=== PATIENT | male | born 1935 | race Caucasian/White ===

== ENCOUNTER 2019-10-01 11:31 | Emergency (ER) | payer MEDICARE, BC ==
--- NOTE | 2019-10-01 13:16 | CT ---
EXAM: CT abdomen and pelvis without IV contrast PROVIDED CLINICAL HISTORY: None COMPARISON: None FINDINGS: The visualized lung bases are free of significant opacity. The solid abdominal organs demonstrate an unremarkable, unenhanced CT appearance. There is no bowel dilatation, inflammatory fat stranding, free fluid or free air apparent. There is n o evidence for appendicitis. The pelvis is suboptimally evaluated on the basis of beam hardening artifact from left hip arthroplasty. No regional lymph node enlargement apparent. Vascular calcifications are noted. The osseous structures demonstrate no concerning lytic or blastic lesions. IMPRESSION: No evidence for an acute process.
[2019-10-01 13:19] LABS: Bilirubin Negative (Negative); Blood, Urine Negative (Negative); Clarity Clear (Clear); Glucose, Urine (Dipstick) 100 mg/dL (Negative); Leukocyte Negative Leu/uL (Negative); Nitrite Negative (Negative); Protein, Urine (Dipstick) 10 mg/dL (Neg-Trace); Urobilinogen Normal mg/dL (Less than 2)
[2019-10-01 13:27] LABS: #Basophils 0.1 thou/uL (0.0-0.2); #Eosinphils 0.2 thou/uL (0.0-0.7); #Lymphocytes 2.5 thou/uL (1.20-3.40); #Neutrophils 7.6 thou/uL (1.40-6.50); %Basophils 0.6 % (0.0-1.0); %Eosinophils 1.4 % (0.0-10.0); %Monocytes 8.8 % (0.0-10.0); %Neutrophils 67.2 % (42.0-75.0); Hemoglobin 16.8 g/dL (14.0-18.0); Mean Corpuscular HGB CONC 32.9 g/dL (32.0-36.0); Mean Corpuscular Hemoglobin 30.8 pg (27.0-31.0); Mean Corpuscular Volume 93.6 fL (78.0-98.0); Mean Platelet Volume 8.7 fL (7.4-10.4); Platelet Count 189 thou/uL (130-400); RBC Distribution Width 13.1 % (11.5-14.5); Red Blood Cell (RBC) Count 5.44 mill/uL (4.70-6.10); White Blood Cell (WBC) Count 11.3 thou/uL (4.8-10.8)
[2019-10-01] MEDS ORDERED: Fentanyl 100 MCG/2 ML VIAL ONE (13:49)
[2019-10-01] MEDS ORDERED: Ketorolac Tromethamine 30 MG/ML VIAL ONE (13:49)
[2019-10-01 13:54] LABS: ALT (SGPT) 16 U/L (8-55); AST (SGOT) 20 U/L (5-34); Albumin 4.5 g/dL (3.4-4.8); Alkaline Phosphatase 71 U/L (40-110); Anion Gap 12 mmol/L (10-20); BUN (Urea Nitrogen) 22 mg/dL (8.4-25.7); Bilirubin, Total 0.5 mg/dL (0.2-1.2); CK (CPK) 40 U/L (30-200); Calc. Creatinine Clearance 0 mL/min (70-130); Calcium 9.8 mg/dL (7.8-10.44); Carbon Dioxide 31 mmol/L (23-31); Chloride 100 mmol/L (98-107); Estimated GFR-MDRD 44; Globulin 3.2 g/dL (2.4-3.5); Glucose 87 mg/dL (83-110); Lipase 28 U/L (8-78); Potassium 3.7 mmol/L (3.5-5.1); Protein, Total 7.7 g/dL (5.8-8.1); Sodium 139 mmol/L (136-145)
== END 2019-10-01 15:23 | disposition home or self-care (01) ==
LOC: ERS 11:31
DX: R10.9 Unspecified abdominal pain (principal); I10 Essential (primary) hypertension; I48.91 Unspecified atrial fibrillation; E11.9 Type 2 diabetes mellitus without complications; F17.220 Nicotine dependence, chewing tobacco, uncomplicated; Z79.899 Other long term (current) drug therapy
CPT/HCPCS: 74176; 80053; 81003; 82550; 83690; 84484; 85025; 93005; 96361; 96374; 96375; J1885; J3010

== ENCOUNTER 2022-02-28 11:32 | Emergency (ER) | payer MEDICARE, BC ==
[2022-02-28 13:28] LABS: #Basophils 0.1 thou/uL (0.0-0.2); #Eosinphils 0.2 thou/uL (0.0-0.7); #Lymphocytes 2.3 thou/uL (1.20-3.40); #Monocytes 0.8 thou/uL (0.11-0.59); #Neutrophils 5.4 thou/uL (1.40-6.50); %Basophils 0.8 % (0.0-1.0); %Eosinophils 2.2 % (0.0-10.0); %Lymphocytes 26.6 % (21.0-51.0); %Neutrophils 61.4 % (42.0-75.0); Hemoglobin 14.4 g/dL (14.0-18.0); Mean Corpuscular HGB CONC 32.2 g/dL (32.0-36.0); Mean Corpuscular Hemoglobin 33.9 pg (27.0-31.0); Mean Platelet Volume 7.7 fL (7.4-10.4); Platelet Count 193 thou/uL (130-400); RBC Distribution Width 12.9 % (11.5-14.5); Red Blood Cell (RBC) Count 4.23 mill/uL (4.70-6.10); White Blood Cell (WBC) Count 8.8 thou/uL (4.8-10.8)
[2022-02-28 13:42] LABS: ALT (SGPT) 26 U/L (8-55); AST (SGOT) 27 U/L (5-34); Albumin 3.6 g/dL (3.4-4.8); Alkaline Phosphatase 68 U/L (40-110); Anion Gap 12 mmol/L (10-20); BUN (Urea Nitrogen) 21 mg/dL (8.4-25.7); Bilirubin, Total 0.7 mg/dL (0.2-1.2); Calc. Creatinine Clearance 0 mL/min (70-130); Calcium 9.2 mg/dL (7.8-10.44); Carbon Dioxide 31 mmol/L (23-31); Chloride 99 mmol/L (98-107); Globulin 2.8 g/dL (2.4-3.5); Glucose 146 mg/dL (83-110); Protein, Total 6.4 g/dL (5.8-8.1); Sodium 138 mmol/L (136-145)
[2022-02-28] MEDS ORDERED: Furosemide 20 MG/2 ML VIAL ONE (14:07)
== END 2022-02-28 14:41 | disposition home or self-care (01) ==
LOC: ERS 11:32
DX: I11.0 Hypertensive heart disease with heart failure (principal); I50.9 Heart failure, unspecified; I48.91 Unspecified atrial fibrillation; E11.9 Type 2 diabetes mellitus without complications; F17.220 Nicotine dependence, chewing tobacco, uncomplicated; Z79.899 Other long term (current) drug therapy; Z79.01 Long term (current) use of anticoagulants
CPT/HCPCS: 36415; 71045; 80053; 83880; 84484; 85025; 93005; 96374; J1940

== ENCOUNTER 2023-09-13 11:44 | Inpatient (IN) | payer MEDICARE, BC ==
[2023-09-13] MEDS ORDERED: Acetaminophen 500 MG TAB ONE (13:18)
[2023-09-13 13:21] LABS: #Monocytes 1.4 thou/uL (0.11-0.59); #Neutrophils 9.9 thou/uL (1.40-6.50); %Basophils 0.2 % (0.0-1.0); %Lymphocytes 11.2 % (21.0-51.0); %Monocytes 11.2 % (0.0-10.0); %Neutrophils 76.9 % (42.0-75.0); Hematocrit 47.4 % (42.0-52.0); Hemoglobin 16.1 g/dL (14.0-18.0); Mean Corpuscular Hemoglobin 32.9 pg (27.0-31.0); Mean Corpuscular Volume 96.7 fl (78.0-98.0); Mean Platelet Volume 10.5 fL (7.4-10.4); Platelet Count 223 10x3/uL (130-400); White Blood Cell (WBC) Count 12.8 10x3/uL (4.8-10.8)
[2023-09-13 13:33] LABS: Bacteria/HPF None Seen HPF (None Seen); Bilirubin Negative (Negative); Blood, Urine 1+ (Negative); CAUTI Indications for Culture Alt mental st,lethar; Clarity Clear (Clear); Glucose, Urine (Dipstick) Greater than 1000 mg/dL (Negative); Ketone, Urine Negative (Negative); Leukocyte Negative Leu/uL (Negative); Nitrite Negative (Negative); Protein, Urine (Dipstick) 50 mg/dL (Neg-Trace); RBC/HPF 0-3 HPF (0-3); Specific Gravity, Urine 1.013 (1.002-1.036); Squamous Epithelial None Seen HPF (0-3); Urobilinogen Normal mg/dL (Less than 2); WBC/HPF 0-3 HPF (0-3); pH, Urine 5.5 (5.0-9.0)
[2023-09-13 13:35] LABS: Urine Culture Reflex No No
[2023-09-13 13:43] LABS: ALT (SGPT) 13 U/L (8-55); AST (SGOT) 22 U/L (5-34); Alkaline Phosphatase 90 U/L (40-110); Anion Gap 14 mmol/L (10-20); BUN (Urea Nitrogen) 16 mg/dL (8.4-25.7); Bilirubin, Total 0.8 mg/dL (0.2-1.2); Calc. Creatinine Clearance 0 mL/min (70-130); Calcium 9.3 mg/dL (7.8-10.44); Carbon Dioxide 30 mmol/L (23-31); Chloride 95 mmol/L (98-107); Estimated GFR 48; Globulin 3.5 g/dL (2.4-3.5); Glucose 155 mg/dL (83-110); Potassium 3.2 mmol/L (3.5-5.1); Protein, Total 7.5 g/dL (5.8-8.1); Sodium 136 mmol/L (136-145)
[2023-09-13 13:58] LABS: SARS-CoV-2 NAA Rapid Test Not Detected (NotDetected)
[2023-09-13] MEDS ORDERED: Dextrose 5% in Water 1,000 ML IV PRN (15:29)
[2023-09-13] MEDS ORDERED: Glucagon 1 MG/ML KIT IM PRN (15:29)
[2023-09-13] MEDS ORDERED: hydrALAZINE 20 MG/ML VIAL SLOW IVP PRN (15:29)
[2023-09-13] MEDS ORDERED: Dextrose 50% Abboject 50 ML SYRINGE SLOW IVP PRN (15:29)
[2023-09-13] MEDS ORDERED: Acetaminophen 325 MG TAB PO PRN (15:29)
[2023-09-13] MEDS ORDERED: cefTRIAXone (ROCEPHIN) 2 GM VIAL ONE (15:40)
[2023-09-13] MEDS ORDERED: Sodium Chloride 0.9% 250 ML 250 ML ONE (15:40)
[2023-09-13] MEDS ORDERED: Sodium Chloride 0.9% 100 ML ONE (15:40)
[2023-09-13] MEDS ORDERED: Potassium Chloride 20 MEQ TAB ONE (15:40)
[2023-09-13] MEDS ORDERED: Azithromycin 500 MG VIAL ONE (15:40)
[2023-09-13 16:24] LABS: Lactic Acid 1.1 mmol/L (0.5-2.2)
[2023-09-13 17:14] LABS: Legionella Urinary Ag Negative (Negative); Strep pneumo Urine Ag NEGATIVE (NEGATIVE)
[2023-09-13 17:19] VITALS: BMI 31.6
[2023-09-13] MEDS ORDERED: Apixaban 5 MG TAB PO SCH (21:00)
[2023-09-13] MEDS: Famotidine 20 MG TAB PO SCH (21:56)
[2023-09-14] MEDS: Ipratropium/Albuterol 3 ML NEB NEB PRN ×2 (01:35→06:32)
[2023-09-14 06:52] LABS: #Neutrophils 10.1 thou/uL (1.40-6.50); %Basophils 0.2 % (0.0-1.0); %Lymphocytes 10.4 % (21.0-51.0); %Monocytes 7.7 % (0.0-10.0); %Neutrophils 81.3 % (42.0-75.0); Hematocrit 44.1 % (42.0-52.0); Hemoglobin 14.7 g/dL (14.0-18.0); Mean Corpuscular HGB CONC 33.3 g/dL (32.0-36.0); Mean Corpuscular Hemoglobin 33.2 pg (27.0-31.0); Mean Corpuscular Volume 99.5 fl (78.0-98.0); Mean Platelet Volume 10.8 fL (7.4-10.4); Platelet Count 174 10x3/uL (130-400); Red Blood Cell (RBC) Count 4.43 mill/uL (4.70-6.10); White Blood Cell (WBC) Count 12.4 10x3/uL (4.8-10.8)
[2023-09-14 07:14] LABS: Anion Gap 14 mmol/L (10-20); BUN (Urea Nitrogen) 18 mg/dL (8.4-25.7); Calc. Creatinine Clearance 54 mL/min (70-130); Calcium 8.7 mg/dL (7.8-10.44); Carbon Dioxide 27 mmol/L (23-31); Chloride 99 mmol/L (98-107); Estimated GFR 53; Glucose 116 mg/dL (83-110); Potassium 3.8 mmol/L (3.5-5.1); Sodium 136 mmol/L (136-145)
[2023-09-14] MEDS: Simvastatin 10 MG TAB PO SCH ×2 (09:30→20:28)
[2023-09-14] MEDS: Cyanocobalamin (Vitamin B-12) 1,000 MCG TAB PO SCH (09:30)
[2023-09-14] MEDS ORDERED: NIFEDIPINE 30 MG PO SCH (09:30)
[2023-09-14] MEDS: Allopurinol 300 MG TAB PO SCH (09:31)
[2023-09-14] MEDS: Apixaban 2.5 MG TAB PO SCH ×2 (09:31→20:28)
[2023-09-14] MEDS ORDERED: Ipratropium/Albuterol 3 ML NEB EZPAP PRN (09:43)
[2023-09-14] MEDS: Ipratropium/Albuterol 3 ML NEB NEB SCH ×3 (10:13→20:02)
[2023-09-14] MEDS ORDERED: Empagliflozin 25 MG TAB PO SCH (10:30)
[2023-09-14 12:54] LABS: Bacteria/HPF None Seen HPF (None Seen); Bilirubin Negative (Negative); Blood, Urine Trace (Negative); Clarity Clear (Clear); Glucose, Urine (Dipstick) Greater than 1000 mg/dL (Negative); Ketone, Urine 10 mg/dL (Negative); Leukocyte Negative Leu/uL (Negative); Nitrite Negative (Negative); Protein, Urine (Dipstick) 50 mg/dL (Neg-Trace); RBC/HPF 0-3 HPF (0-3); Specific Gravity, Urine 1.022 (1.002-1.036); Squamous Epithelial 0-3 HPF (0-3); Urobilinogen Normal mg/dL (Less than 2); pH, Urine 5.5 (5.0-9.0)
[2023-09-14] MEDS: cefTRIAXone\\ROCEPHIN 1 GM in Sodium Chloride 0.9% 100 ML IVPB SCH (15:34)
[2023-09-14] MEDS: Azithromycin 500 MG in Sodium Chloride 0.9% 250 ML 250 ML IVPB SCH (16:40)
[2023-09-14] MEDS: Famotidine 20 MG TAB PO SCH (20:28)
[2023-09-15] MEDS: Ipratropium/Albuterol 3 ML NEB NEB SCH ×7 (00:17→22:51)
[2023-09-15 06:00] LABS: #Monocytes 0.8 thou/uL (0.11-0.59); #Neutrophils 8.2 thou/uL (1.40-6.50); %Basophils 0.3 % (0.0-1.0); %Eosinophils 0.1 % (0.0-10.0); %Lymphocytes 14.2 % (21.0-51.0); %Monocytes 7.7 % (0.0-10.0); %Neutrophils 77.3 % (42.0-75.0); Hematocrit 41.6 % (42.0-52.0); Hemoglobin 13.9 g/dL (14.0-18.0); Mean Corpuscular HGB CONC 33.4 g/dL (32.0-36.0); Mean Corpuscular Hemoglobin 32.9 pg (27.0-31.0); Mean Corpuscular Volume 98.6 fl (78.0-98.0); Mean Platelet Volume 10.7 fL (7.4-10.4); Platelet Count 195 10x3/uL (130-400); RBC Distribution Width 13.9 % (11.5-14.5); Red Blood Cell (RBC) Count 4.22 mill/uL (4.70-6.10); White Blood Cell (WBC) Count 10.6 10x3/uL (4.8-10.8)
[2023-09-15 06:09] LABS: Hemoglobin A1c 6.4 % (4.0-6.0)
[2023-09-15 06:24] LABS: Anion Gap 16 mmol/L (10-20); BUN (Urea Nitrogen) 22 mg/dL (8.4-25.7); Calc. Creatinine Clearance 53 mL/min (70-130); Calcium 8.8 mg/dL (7.8-10.44); Carbon Dioxide 25 mmol/L (23-31); Chloride 99 mmol/L (98-107); Estimated GFR 52; Glucose 142 mg/dL (83-110); Potassium 3.6 mmol/L (3.5-5.1); Sodium 136 mmol/L (136-145)
[2023-09-15] MEDS: Cyanocobalamin (Vitamin B-12) 1,000 MCG TAB PO SCH (08:48)
[2023-09-15] MEDS: Simvastatin 10 MG TAB PO SCH (08:48)
[2023-09-15] MEDS: Apixaban 2.5 MG TAB PO SCH ×2 (08:48→21:22)
[2023-09-15] MEDS: Allopurinol 300 MG TAB PO SCH (08:49)
[2023-09-15] MEDS: NIFEDIPINE 30 MG PO SCH (08:49)
[2023-09-15] MEDS ORDERED: Empagliflozin 25 MG TAB PO SCH (09:00)
[2023-09-15] MEDS ORDERED: Non-Formulary Item 1 EACH (Dapagliflozin Propanediol [Farxiga] 10 MG Tablet) PO SCH (09:00)
[2023-09-15] MEDS ORDERED: DAPAGLIFLOZIN 10 MG TABLET PO SCH (09:00)
[2023-09-15] MEDS ORDERED: methylPREDNISolone Sod Succ/PF 125 MG/2 ML VIAL IVP SCH (09:45)
[2023-09-15 09:49] LABS: Actual Bicarbonate (HCO3a) 23.3 mEq/L (22-28); Base Excess (BEa) -0.8 mEq/L (-2.0 to +3.0); CO2 Tension 37.1 mmHg (35.0-45.0); Calcium, Ionized (arterial) 1.12 mmol/L (1.12-1.30); Carboxyhemoglobin (COHb) 1.1 gm% (0.0-3.0); Hematocrit-ABG 42 % (42.0-52.0); Hemoglobin (Hb) 14.3 g/dL (14.0-18.0); Potassium - ABG Lab 3.67 mmol/L (3.70-5.30); pH, Arterial 7.416 (7.35-7.45)
[2023-09-15 10:14] LABS: O2 Tension (PaO2), arterial 52.6 mmHg (> 60.0); Puncture Site RBA
[2023-09-15] MEDS ORDERED: dilTIAZem 125 MG in Sodium Chloride 0.9% 100 ML IVPB SCH (13:30)
[2023-09-15] MEDS: HumaLOG 300 UNITS/3 ML VIAL SC PRN ×3 (14:24→21:22)
[2023-09-15] MEDS: Azithromycin 500 MG in Sodium Chloride 0.9% 250 ML 250 ML IVPB SCH (17:18)
[2023-09-15] MEDS: cefTRIAXone\\ROCEPHIN 1 GM in Sodium Chloride 0.9% 100 ML IVPB SCH (17:18)
[2023-09-15 20:59] LABS: Lactic Acid 4.4 mmol/L (0.5-2.2)
[2023-09-15] MEDS ORDERED: Simvastatin 10 MG TAB PO SCH (21:00)
[2023-09-15] MEDS ORDERED: Digoxin 0.5 MG/2 ML AMP SLOW IVP SCH (21:15)
[2023-09-15] MEDS: Famotidine 20 MG TAB PO SCH (21:22)
[2023-09-16 00:08] LABS: Lactic Acid 2.5 mmol/L (0.5-2.2)
[2023-09-16] MEDS: Ipratropium/Albuterol 3 ML NEB NEB SCH ×6 (03:08→23:06)
[2023-09-16 04:53] LABS: #Monocytes 0.4 thou/uL (0.11-0.59); %Basophils 0.2 % (0.0-1.0); %Lymphocytes 4.4 % (21.0-51.0); %Monocytes 2.9 % (0.0-10.0); %Neutrophils 92.1 % (42.0-75.0); Hematocrit 39.6 % (42.0-52.0); Hemoglobin 13.5 g/dL (14.0-18.0); Mean Corpuscular HGB CONC 34.1 g/dL (32.0-36.0); Mean Corpuscular Hemoglobin 32.6 pg (27.0-31.0); Mean Corpuscular Volume 95.7 fl (78.0-98.0); Mean Platelet Volume 10.8 fL (7.4-10.4); Platelet Count 206 10x3/uL (130-400); RBC Distribution Width 13.6 % (11.5-14.5); Red Blood Cell (RBC) Count 4.14 mill/uL (4.70-6.10); White Blood Cell (WBC) Count 11.9 10x3/uL (4.8-10.8)
[2023-09-16 05:24] LABS: Anion Gap 19 mmol/L (10-20); BUN (Urea Nitrogen) 33 mg/dL (8.4-25.7); Calc. Creatinine Clearance 40 mL/min (70-130); Calcium 8.9 mg/dL (7.8-10.44); Carbon Dioxide 21 mmol/L (23-31); Chloride 97 mmol/L (98-107); Estimated GFR 36; Glucose 168 mg/dL (83-110); Potassium 3.7 mmol/L (3.5-5.1); Sodium 133 mmol/L (136-145)
[2023-09-16] MEDS: HumaLOG 300 UNITS/3 ML VIAL SC PRN ×4 (06:04→20:42)
[2023-09-16] MEDS: Cyanocobalamin (Vitamin B-12) 1,000 MCG TAB PO SCH (08:35)
[2023-09-16] MEDS: Apixaban 2.5 MG TAB PO SCH ×2 (08:36→20:43)
[2023-09-16] MEDS: Empagliflozin 10 MG TAB PO SCH (08:36)
[2023-09-16] MEDS: NIFEDIPINE 30 MG PO SCH (08:39)
[2023-09-16] MEDS: Allopurinol 300 MG TAB PO SCH (08:40)
[2023-09-16] MEDS ORDERED: Empagliflozin 25 MG TAB PO SCH (09:00)
[2023-09-16] MEDS ORDERED: Empagliflozin 10 MG TAB PO SCH (09:00)
[2023-09-16] MEDS ORDERED: Cefepime 1 GM in Sodium Chloride 0.9% 100 ML IVPB SCH (09:00)
[2023-09-16] MEDS ORDERED: Furosemide 40 MG/4 ML VIAL SLOW IVP SCH (09:00)
[2023-09-16] MEDS: Azithromycin 500 MG in Sodium Chloride 0.9% 250 ML 250 ML IVPB SCH (16:00)
[2023-09-16] MEDS: Atorvastatin Calcium 10 MG TAB PO SCH (20:43)
[2023-09-16] MEDS: Famotidine 20 MG TAB PO SCH (20:43)
[2023-09-17] MEDS: Ipratropium/Albuterol 3 ML NEB NEB SCH ×2 (03:01→07:48)
[2023-09-17 05:12] LABS: #Monocytes 0.8 thou/uL (0.11-0.59); #Neutrophils 11.6 thou/uL (1.40-6.50); %Basophils 0.1 % (0.0-1.0); %Lymphocytes 5.9 % (21.0-51.0); %Monocytes 6.2 % (0.0-10.0); %Neutrophils 87.1 % (42.0-75.0); Hematocrit 37.8 % (42.0-52.0); Hemoglobin 13.1 g/dL (14.0-18.0); Mean Corpuscular HGB CONC 34.7 g/dL (32.0-36.0); Mean Corpuscular Hemoglobin 32.9 pg (27.0-31.0); Mean Platelet Volume 10.7 fL (7.4-10.4); Platelet Count 242 10x3/uL (130-400); RBC Distribution Width 13.3 % (11.5-14.5); Red Blood Cell (RBC) Count 3.98 mill/uL (4.70-6.10); White Blood Cell (WBC) Count 13.3 10x3/uL (4.8-10.8)
[2023-09-17] MEDS: HumaLOG 300 UNITS/3 ML VIAL SC PRN ×2 (06:27→18:02)
[2023-09-17 07:46] LABS: Anion Gap 16 mmol/L (10-20); BUN (Urea Nitrogen) 39 mg/dL (8.4-25.7); Calc. Creatinine Clearance 40 mL/min (70-130); Calcium 8.9 mg/dL (7.8-10.44); Carbon Dioxide 23 mmol/L (23-31); Chloride 99 mmol/L (98-107); Estimated GFR 35; Glucose 175 mg/dL (83-110); Potassium 3.6 mmol/L (3.5-5.1); Sodium 134 mmol/L (136-145)
[2023-09-17] MEDS: Apixaban 2.5 MG TAB PO SCH ×2 (08:10→20:28)
[2023-09-17] MEDS: Allopurinol 300 MG TAB PO SCH (08:10)
[2023-09-17] MEDS: Empagliflozin 10 MG TAB PO SCH (08:10)
[2023-09-17] MEDS: Cyanocobalamin (Vitamin B-12) 1,000 MCG TAB PO SCH (08:10)
[2023-09-17] MEDS: NIFEDIPINE 30 MG PO SCH (08:33)
[2023-09-17] MEDS ORDERED: Furosemide 20 MG/2 ML VIAL IVP SCH (09:15)
[2023-09-17] MEDS: Ipratropium/Albuterol 3 ML NEB EZPAP SCH ×4 (10:40→22:59)
[2023-09-17] MEDS: Azithromycin 500 MG in Sodium Chloride 0.9% 250 ML 250 ML IVPB SCH (15:27)
[2023-09-17] MEDS: Atorvastatin Calcium 10 MG TAB PO SCH (20:27)
[2023-09-17] MEDS: Famotidine 20 MG TAB PO SCH (20:28)
[2023-09-18] MEDS: Ipratropium/Albuterol 3 ML NEB EZPAP SCH ×6 (03:44→22:46)
[2023-09-18 05:03] LABS: Anion Gap 14 mmol/L (10-20); BUN (Urea Nitrogen) 33 mg/dL (8.4-25.7); Calc. Creatinine Clearance 53 mL/min (70-130); Calcium 8.7 mg/dL (7.8-10.44); Carbon Dioxide 26 mmol/L (23-31); Chloride 102 mmol/L (98-107); Estimated GFR 50; Glucose 129 mg/dL (83-110); Potassium 3.9 mmol/L (3.5-5.1); Sodium 138 mmol/L (136-145)
[2023-09-18] MEDS: Empagliflozin 10 MG TAB PO SCH (08:35)
[2023-09-18] MEDS: Cyanocobalamin (Vitamin B-12) 1,000 MCG TAB PO SCH (08:35)
[2023-09-18] MEDS: Allopurinol 300 MG TAB PO SCH (08:35)
[2023-09-18] MEDS: Spironolactone 25 MG TAB PO SCH (08:35)
[2023-09-18] MEDS: Apixaban 2.5 MG TAB PO SCH ×2 (08:35→20:36)
[2023-09-18] MEDS: Furosemide 40 MG/4 ML VIAL SLOW IVP SCH (08:36)
[2023-09-18] MEDS: Digoxin 0.5 MG/2 ML AMP SLOW IVP SCH ×3 (08:37→11:39)
[2023-09-18] MEDS: HumaLOG 300 UNITS/3 ML VIAL SC PRN (11:39)
[2023-09-18] MEDS: Azithromycin 500 MG in Sodium Chloride 0.9% 250 ML 250 ML IVPB SCH (15:21)
[2023-09-18] MEDS: Famotidine 20 MG TAB PO SCH (20:36)
[2023-09-18] MEDS: Atorvastatin Calcium 10 MG TAB PO SCH (20:36)
[2023-09-19] MEDS: Ipratropium/Albuterol 3 ML NEB EZPAP SCH ×6 (02:18→23:17)
[2023-09-19 06:28] LABS: Anion Gap 14 mmol/L (10-20); BUN (Urea Nitrogen) 24 mg/dL (8.4-25.7); Calc. Creatinine Clearance 68 mL/min (70-130); Calcium 8.8 mg/dL (7.8-10.44); Carbon Dioxide 28 mmol/L (23-31); Chloride 101 mmol/L (98-107); Estimated GFR 71; Glucose 120 mg/dL (83-110); Potassium 3.7 mmol/L (3.5-5.1); Sodium 139 mmol/L (136-145)
[2023-09-19] MEDS: Spironolactone 25 MG TAB PO SCH (08:50)
[2023-09-19] MEDS: Allopurinol 300 MG TAB PO SCH (08:50)
[2023-09-19] MEDS: Digoxin 0.25 MG TAB PO SCH (08:50)
[2023-09-19] MEDS: Empagliflozin 10 MG TAB PO SCH (08:50)
[2023-09-19] MEDS: Cyanocobalamin (Vitamin B-12) 1,000 MCG TAB PO SCH (08:50)
[2023-09-19] MEDS: Apixaban 5 MG TAB PO SCH ×2 (08:51→20:31)
[2023-09-19] MEDS: Furosemide 40 MG/4 ML VIAL SLOW IVP SCH (08:51)
[2023-09-19] MEDS ORDERED: Digoxin 0.125 MG TAB PO SCH (09:00)
[2023-09-19] MEDS: HumaLOG 300 UNITS/3 ML VIAL SC PRN (13:34)
[2023-09-19] MEDS: Atorvastatin Calcium 10 MG TAB PO SCH (20:31)
[2023-09-19] MEDS: Famotidine 20 MG TAB PO SCH (20:31)
[2023-09-20 01:03] VITALS: TEMP 97.9
[2023-09-20] MEDS: Ipratropium/Albuterol 3 ML NEB EZPAP SCH ×5 (02:52→19:04)
[2023-09-20 06:00] LABS: Anion Gap 13 mmol/L (10-20); BUN (Urea Nitrogen) 28 mg/dL (8.4-25.7); Calc. Creatinine Clearance 51 mL/min (70-130); Calcium 8.7 mg/dL (7.8-10.44); Carbon Dioxide 30 mmol/L (23-31); Chloride 99 mmol/L (98-107); Estimated GFR 49; Glucose 134 mg/dL (83-110); Potassium 3.9 mmol/L (3.5-5.1); Sodium 138 mmol/L (136-145)
[2023-09-20] MEDS ORDERED: Furosemide 40 MG TAB PO SCH (07:30)
[2023-09-20] MEDS: Spironolactone 25 MG TAB PO SCH (08:47)
[2023-09-20] MEDS: Cyanocobalamin (Vitamin B-12) 1,000 MCG TAB PO SCH (08:48)
[2023-09-20] MEDS: Empagliflozin 10 MG TAB PO SCH (08:49)
[2023-09-20] MEDS: Apixaban 5 MG TAB PO SCH (08:49)
[2023-09-20] MEDS: Allopurinol 300 MG TAB PO SCH (08:49)
[2023-09-20] MEDS: HumaLOG 300 UNITS/3 ML VIAL SC PRN (13:29)
[2023-09-20 19:19] VITALS: BP 154/80
== END 2023-09-20 19:17 | DRG 871 ==
LOC: ERS 11:44 → T4-A 16:32 → IMCU/EMU 09-15 13:00 → 2NO 09-18 01:46
PROVIDERS: ADMIT Hospitalist; ATTEND Hospitalist
PROC: 3E03329 Introduction of Other Anti-infective into Peripheral Vein, Percutaneous Approach (ICD-10-PCS; 2023-09-13)
PROC: 4A033R1 Measurement of Arterial Saturation, Peripheral, Percutaneous Approach (ICD-10-PCS; principal; 2023-09-15)
DX: A41.9 Sepsis, unspecified organism (principal); I50.33 Acute on chronic diastolic (congestive) heart failure; J18.9 Pneumonia, unspecified organism; J96.01 Acute respiratory failure with hypoxia; I48.21 Permanent atrial fibrillation; I11.0 Hypertensive heart disease with heart failure; M10.9 Gout, unspecified; E78.00 Pure hypercholesterolemia, unspecified; M54.9 Dorsalgia, unspecified; E66.9 Obesity, unspecified; Z96.653 Presence of artificial knee joint, bilateral; Z79.899 Other long term (current) drug therapy; Z90.49 Acquired absence of other specified parts of digestive tract; Z87.891 Personal history of nicotine dependence; Z11.52 Encounter for screening for COVID-19; Z68.31 Body mass index [BMI] 31.0-31.9, adult; Z82.49 Family history of ischemic heart disease and other diseases of the circulatory system; Z83.3 Family history of diabetes mellitus; E11.9 Type 2 diabetes mellitus without complications
CPT/HCPCS: 36415; 36416; 36600; 71045; 71250; 80048; 80053; 81001; 81003; 81015; 82805; 83036; 83605; 83880; 84145; 84484; 85025; 85379; 87040; 87086; 87449; 87899; 93005; 93010; 93306; 94640; 96365; 96375; J0456; J0692; J0696; J1160; J1815; J1940; J2930; J3490; J7050; J7620

== ENCOUNTER 2023-11-13 11:07 | Inpatient (IN) | payer MEDICARE, BC ==
[2023-11-13] MEDS ORDERED: Furosemide 20 MG (2 mL) VIAL ONE (11:53)
[2023-11-13 11:54] LABS: #Basophils 0.1 thou/uL (0.0-0.2); #Eosinphils 0.1 thou/uL (0.0-0.7); #Monocytes 1.1 thou/uL (0.11-0.59); #Neutrophils 10.4 thou/uL (1.40-6.50); %Basophils 0.4 % (0.0-1.0); %Eosinophils 0.7 % (0.0-10.0); %Lymphocytes 13.9 % (21.0-51.0); %Neutrophils 76.3 % (42.0-75.0); Hematocrit 43.7 % (42.0-52.0); Hemoglobin 14.8 g/dL (14.0-18.0); Mean Corpuscular HGB CONC 33.9 g/dL (32.0-36.0); Mean Corpuscular Volume 94.4 fl (78.0-98.0); Mean Platelet Volume 10.2 fL (7.4-10.4); Platelet Count 294 10x3/uL (130-400); RBC Distribution Width 14.9 % (11.5-14.5); Red Blood Cell (RBC) Count 4.63 mill/uL (4.70-6.10); White Blood Cell (WBC) Count 13.6 10x3/uL (4.8-10.8)
[2023-11-13 12:24] LABS: ALT (SGPT) 10 U/L (8-55); AST (SGOT) 22 U/L (5-34); Albumin 4.2 g/dL (3.4-4.8); Alkaline Phosphatase 93 U/L (40-110); Anion Gap 16 mmol/L (10-20); BUN (Urea Nitrogen) 18 mg/dL (8.4-25.7); Bilirubin, Total 1.2 mg/dL (0.2-1.2); Calc. Creatinine Clearance 0 mL/min (70-130); Calcium 9.7 mg/dL (7.8-10.44); Carbon Dioxide 24 mmol/L (23-31); Chloride 100 mmol/L (98-107); Estimated GFR 45; Globulin 3.7 g/dL (2.4-3.5); Glucose 194 mg/dL (83-110); Potassium 4.1 mmol/L (3.5-5.1); Protein, Total 7.9 g/dL (5.8-8.1); Sodium 136 mmol/L (136-145)
[2023-11-13 12:25] LABS: Troponin I 0.028 ng/mL (< 0.028)
[2023-11-13 14:46] LABS: SARS-CoV-2 E Target Negative; SARS-CoV-2 N2 Target Negative; SARS-CoV-2 NAA Rapid Test Not Detected (NotDetected); SARS-CoV-2 RdRP gene Negative
[2023-11-13] MEDS ORDERED: Dextrose 50% Abboject 50 ML SYRINGE SLOW IVP PRN (15:29)
[2023-11-13] MEDS ORDERED: HumaLOG 300 UNITS/3 ML VIAL SC PRN (15:29)
[2023-11-13] MEDS ORDERED: Glucagon 1 MG/ML KIT IM PRN (15:29)
[2023-11-13] MEDS ORDERED: Dextrose 5% in Water 1,000 ML IV PRN (15:29)
[2023-11-13 15:37] LABS: Troponin I 0.031 ng/mL (< 0.028)
[2023-11-13] MEDS: Furosemide 20 MG (2 mL) VIAL SLOW IVP SCH ×2 (18:06→23:39)
[2023-11-13 18:48] LABS: Troponin I 0.023 ng/mL (< 0.028)
[2023-11-13] MEDS: Apixaban 5 MG TAB PO SCH (22:36)
[2023-11-13] MEDS: Atorvastatin Calcium 10 MG TAB PO SCH (22:36)
[2023-11-14] MEDS ORDERED: Electrolyte Replacement Protocol 1 EACH FS SCH (03:15)
[2023-11-14 04:54] LABS: Anion Gap 11 mmol/L (10-20); BUN (Urea Nitrogen) 19 mg/dL (8.4-25.7); Calc. Creatinine Clearance 52 mL/min (70-130); Calcium 8.6 mg/dL (7.8-10.44); Carbon Dioxide 28 mmol/L (23-31); Chloride 103 mmol/L (98-107); Estimated GFR 50; Glucose 129 mg/dL (83-110); Potassium 3.5 mmol/L (3.5-5.1); Sodium 138 mmol/L (136-145)
[2023-11-14] MEDS: Furosemide 40 MG (4 mL) VIAL SLOW IVP SCH ×2 (05:20→16:33)
[2023-11-14] MEDS ORDERED: NIFEdipine XL 30 MG ER.TAB PO SCH (09:00)
[2023-11-14] MEDS ORDERED: Digoxin 0.25 MG TAB PO SCH (09:00)
[2023-11-14] MEDS ORDERED: SELENIUM 200 MCG PO SCH (09:00)
[2023-11-14] MEDS: Magnesium 2 GM/50 ML(in water) 2 GM in Premix 1 BAG IVPB SCH (11:17)
[2023-11-14] MEDS: Cyanocobalamin (Vitamin B-12) 1,000 MCG TAB PO SCH (11:20)
[2023-11-14] MEDS: Multivitamin W/ Minerals 1 TAB PO SCH (11:21)
[2023-11-14] MEDS: Potassium Chloride 20 MEQ TAB PO SCH (11:22)
[2023-11-14] MEDS: Allopurinol 300 MG TAB PO SCH (11:22)
[2023-11-14] MEDS: Spironolactone 25 MG TAB PO SCH ×2 (11:22→11:27)
[2023-11-14] MEDS: Empagliflozin 10 MG TAB PO SCH (11:23)
[2023-11-15] MEDS: Furosemide 100 MG (10 mL) VIAL SLOW IVP SCH (05:59)
[2023-11-15 07:59] VITALS: BMI 31.6
[2023-11-15] MEDS: Spironolactone 25 MG TAB PO SCH (08:06)
[2023-11-15] MEDS: Senokot S 8.6-50 MG TAB PO SCH (10:00)
[2023-11-15] MEDS: Multivit, Therapeutic 1 TAB PO SCH (10:00)
[2023-11-15] MEDS: Potassium Chloride 20 MEQ TAB PO SCH (15:30)
[2023-11-16 18:40] LABS: #Basophils 0.1 thou/uL (0.0-0.2); #Eosinphils 0.2 thou/uL (0.0-0.7); #Monocytes 1.1 thou/uL (0.11-0.59); #Neutrophils 6.6 thou/uL (1.40-6.50); %Basophils 0.8 % (0.0-1.0); %Eosinophils 1.7 % (0.0-10.0); %Lymphocytes 22.9 % (21.0-51.0); %Monocytes 10.3 % (0.0-10.0); %Neutrophils 63.9 % (42.0-75.0); Hemoglobin 15.2 g/dL (14.0-18.0); Mean Corpuscular Hemoglobin 32.2 pg (27.0-31.0); Mean Corpuscular Volume 97.5 fl (78.0-98.0); Mean Platelet Volume 10.7 fL (7.4-10.4); Platelet Count 248 10x3/uL (130-400); RBC Distribution Width 14.7 % (11.5-14.5); Red Blood Cell (RBC) Count 4.72 mill/uL (4.70-6.10); White Blood Cell (WBC) Count 10.2 10x3/uL (4.8-10.8)
[2023-11-16] MEDS: HumaLOG 300 UNITS/3 ML VIAL SC PRN (18:48)
[2023-11-16 19:09] LABS: Anion Gap 15 mmol/L (10-20); BUN (Urea Nitrogen) 22 mg/dL (8.4-25.7); Calc. Creatinine Clearance 47 mL/min (70-130); Calcium 9.5 mg/dL (7.8-10.44); Carbon Dioxide 34 mmol/L (23-31); Chloride 92 mmol/L (98-107); Estimated GFR 44; Glucose 180 mg/dL (83-110); Potassium 3.4 mmol/L (3.5-5.1); Sodium 138 mmol/L (136-145)
[2023-11-16] MEDS: Potassium Chloride 20 MEQ TAB PO SCH (21:53)
[2023-11-17 05:45] LABS: #Basophils 0.1 thou/uL (0.0-0.2); #Eosinphils 0.2 thou/uL (0.0-0.7); #Monocytes 1.2 thou/uL (0.11-0.59); #Neutrophils 6.4 thou/uL (1.40-6.50); %Basophils 0.7 % (0.0-1.0); %Eosinophils 1.7 % (0.0-10.0); %Lymphocytes 26.3 % (21.0-51.0); %Monocytes 10.9 % (0.0-10.0); Hematocrit 40.7 % (42.0-52.0); Hemoglobin 13.4 g/dL (14.0-18.0); Mean Corpuscular HGB CONC 32.9 g/dL (32.0-36.0); Mean Corpuscular Hemoglobin 31.2 pg (27.0-31.0); Mean Corpuscular Volume 94.9 fl (78.0-98.0); Mean Platelet Volume 10.6 fL (7.4-10.4); Platelet Count 279 10x3/uL (130-400); RBC Distribution Width 14.5 % (11.5-14.5); Red Blood Cell (RBC) Count 4.29 mill/uL (4.70-6.10); White Blood Cell (WBC) Count 10.7 10x3/uL (4.8-10.8)
[2023-11-17 06:05] LABS: Anion Gap 13 mmol/L (10-20); BUN (Urea Nitrogen) 22 mg/dL (8.4-25.7); Calc. Creatinine Clearance 51 mL/min (70-130); Calcium 9.2 mg/dL (7.8-10.44); Carbon Dioxide 36 mmol/L (23-31); Chloride 94 mmol/L (98-107); Estimated GFR 53; Glucose 110 mg/dL (83-110); Potassium 3.5 mmol/L (3.5-5.1); Sodium 139 mmol/L (136-145)
[2023-11-17] MEDS: Potassium Chloride 20 MEQ TAB PO SCH (09:04)
[2023-11-18 06:27] LABS: #Basophils 0.1 thou/uL (0.0-0.2); #Eosinphils 0.2 thou/uL (0.0-0.7); #Monocytes 1.2 thou/uL (0.11-0.59); #Neutrophils 6.6 thou/uL (1.40-6.50); %Basophils 0.5 % (0.0-1.0); %Eosinophils 1.7 % (0.0-10.0); %Lymphocytes 26.2 % (21.0-51.0); %Neutrophils 60.1 % (42.0-75.0); Hematocrit 39.5 % (42.0-52.0); Hemoglobin 13.3 g/dL (14.0-18.0); Mean Corpuscular HGB CONC 33.7 g/dL (32.0-36.0); Mean Corpuscular Hemoglobin 32.1 pg (27.0-31.0); Mean Corpuscular Volume 95.4 fl (78.0-98.0); Mean Platelet Volume 10.5 fL (7.4-10.4); Platelet Count 273 10x3/uL (130-400); RBC Distribution Width 14.4 % (11.5-14.5); Red Blood Cell (RBC) Count 4.14 mill/uL (4.70-6.10)
[2023-11-18 06:49] LABS: Anion Gap 13 mmol/L (10-20); BUN (Urea Nitrogen) 25 mg/dL (8.4-25.7); Calc. Creatinine Clearance 47 mL/min (70-130); Calcium 9.2 mg/dL (7.8-10.44); Carbon Dioxide 34 mmol/L (23-31); Chloride 94 mmol/L (98-107); Estimated GFR 48; Glucose 121 mg/dL (83-110); Potassium 3.8 mmol/L (3.5-5.1); Sodium 137 mmol/L (136-145)
[2023-11-18 07:56] VITALS: BP 119/68; TEMP 98.5
[2023-11-18] MEDS: Furosemide 40 MG TAB PO SCH (09:39)
== END 2023-11-18 12:55 | disposition home or self-care (01) | DRG 291 ==
LOC: ERS 11:07 → 2SW 16:54 → OBSVTOIN 11-14 09:10
PROVIDERS: ADMIT Internal Medicine; ATTEND Internal Medicine
DX: I13.0 Hypertensive heart and chronic kidney disease with heart failure and stage 1 through stage 4 chronic kidney disease, or unspecified chronic kidney disease (principal); I50.33 Acute on chronic diastolic (congestive) heart failure; J96.01 Acute respiratory failure with hypoxia; I48.21 Permanent atrial fibrillation; E78.5 Hyperlipidemia, unspecified; M10.9 Gout, unspecified; N18.30 Chronic kidney disease, stage 3 unspecified; E11.22 Type 2 diabetes mellitus with diabetic chronic kidney disease; E87.6 Hypokalemia; E66.9 Obesity, unspecified; Z79.01 Long term (current) use of anticoagulants; Z68.30 Body mass index [BMI] 30.0-30.9, adult; Z79.899 Other long term (current) drug therapy; Z11.52 Encounter for screening for COVID-19
CPT/HCPCS: 36415; 36416; 71045; 80048; 80053; 80162; 83735; 83880; 84484; 85025; 93005; 93798; 94760; 96374; 96376; G0378; J1940; J3475; U0002

== ENCOUNTER 2025-06-29 20:38 | Emergency (ER) | payer MEDICARE, BC ==
[2025-06-29 22:12] LABS: #Basophils 0.08 10x3/uL (0.0-0.2); #Eosinophils Less than 0.03 10x3/uL (0.0-0.7); #Monocytes 1.17 10x3/uL (0.11-0.59); #Neutrophils 13.59 10x3/uL (1.40-6.50); %Basophils 0.5 % (0.0-1.0); %Eosinophils 0.1 % (0.0-10.0); %Lymphocytes 9.6 % (21.0-51.0); %Monocytes 7.0 % (0.0-10.0); %Neutrophils 81.4 % (42.0-75.0); Hematocrit 48.9 % (42.0-52.0); Hemoglobin 16.5 g/dL (14.0-18.0); Mean Corpuscular Hemoglobin 32.6 pg (27.0-31.0); Mean Corpuscular Volume 96.6 fL (78.0-98.0); Platelet Count 194 10x3/uL (130-400); Red Blood Cell (RBC) Count 5.06 mill/uL (4.70-6.10); White Blood Cell (WBC) Count 16.69 10x3/uL (4.8-10.8)
[2025-06-29 22:33] LABS: ALT (SGPT) 16 U/L (Less than 45); AST (SGOT) 36 U/L (11-34); Albumin 3.6 g/dL (3.1-4.5); Alkaline Phosphatase 89 U/L (40-110); Anion Gap 20 mmol/L (10-20); BUN (Urea Nitrogen) 32 mg/dL (8.4-25.7); Bilirubin, Total 0.9 mg/dL (0.3-1.2); CK (CPK) 48 U/L (30-200); Calc. Creatinine Clearance 0 mL/min (70-130); Calcium 9.8 mg/dL (7.8-10.44); Carbon Dioxide 27 mmol/L (23-31); Chloride 93 mmol/L (98-107); Globulin 3.6 g/dL (2.4-3.5); Glucose 165 mg/dL (83-110); Potassium 4.1 mmol/L (3.5-5.1); Sodium 136 mmol/L (136-145)
== END 2025-06-29 23:15 | disposition home or self-care (01) ==
LOC: ERS 20:38
DX: Z04.3 Encounter for examination and observation following other accident (principal); E11.9 Type 2 diabetes mellitus without complications; I48.91 Unspecified atrial fibrillation; I11.0 Hypertensive heart disease with heart failure; I50.9 Heart failure, unspecified; F17.220 Nicotine dependence, chewing tobacco, uncomplicated; W07.XXXA Fall from chair, initial encounter
CPT/HCPCS: 36416; 70450; 71045; 80053; 82550; 83880; 84484; 85025; 93005